=== PATIENT | female | born 1990 | race Caucasian/White ===

== ENCOUNTER → 2021-06-17 | Outpatient (CLI) | payer MEDICAID ==
--- NOTE | 2021-06-17 14:21 | Diagnostic Imaging Report ---
INDICATION: Follow-up left foot fracture. TIME OF EXAM: 11:34 AM No prior studies available for comparison. FINDINGS: 3 views of the left foot demonstrate a fracture at the base of the proximal phalanx of the 5th toe. No significant displacement or angulation is seen. There are also findings suggestive of a fracture of the distal aspect of the proximal phalanx 4th toe. Correlation of pain at this location is recommended. Metatarsals are intact. Midfoot and hindfoot are unremarkable. IMPRESSION: Fractures involving the 4th and 5th toes, as described. Dictated by: Dictated on workstation # [id number]
== END ==
LOC: RAD FS 11:14
PROVIDERS: ATTEND Nurse Practitioner
DX: S92.515D Nondisplaced fracture of proximal phalanx of left lesser toe(s), subsequent encounter for fracture with routine healing (principal); X58.XXXD Exposure to other specified factors, subsequent encounter
CPT/HCPCS: 73630

== ENCOUNTER → 2021-07-29 | Outpatient (CLI) | payer MEDICAID ==
--- NOTE | 2021-07-29 13:25 | Diagnostic Imaging Report ---
INDICATION: Fracture. Comparison made with prior examination from 06/17/2021. FINDINGS: There are subacute fractures involving the proximal phalanx of the left fourth and fifth toes. Alignment is grossly normal. There is no other acute fracture or dislocation. The soft tissues are unremarkable. IMPRESSION: Stable alignment of the fractures involving the proximal phalanx of left fourth and fifth toes. Dictated by: Dictated on workstation # [id number]
== END ==
LOC: RAD FS 11:09
PROVIDERS: ATTEND Nurse Practitioner
DX: S92.515D Nondisplaced fracture of proximal phalanx of left lesser toe(s), subsequent encounter for fracture with routine healing (principal); X58.XXXD Exposure to other specified factors, subsequent encounter
CPT/HCPCS: 73630